=== PATIENT | female | born 1945 | race Caucasian/White ===

== ENCOUNTER 2016-06-27 06:10 | Inpatient (IN) | payer MEDICARE, BC ==
[2016-06-27] MEDS: ACETAMINOPHEN 1,000 MG/ 100 ML IV SCH ×6 (00:45→17:48)
[~2016-06-27 06:10] MED LIST: ACETAMINOPHEN 1000MG/100 ML PREMIX IV ONE; CEFAZOLIN 2 Gram 50 ML IVPB ONE; FAMOTIDINE 20MG TABLET PO ONE; MECLIZINE 25 MG TABLET PO ONE; METOCLOPRAMIDE 10 MG TABLET PO ONE
[2016-06-27] MEDS ORDERED: OXYCODONE HCL 5 MG TABLET PO PRN (09:09)
[2016-06-27] MEDS ORDERED: RINGERS SOLUTION,LACTATED 1,000 ML IV PRN (09:11)
[2016-06-27] MEDS ORDERED: METOCLOPRAMIDE HCL 10 MG/2 ML VIAL IVP PRN (09:15)
[2016-06-27] MEDS ORDERED: MAGNESIUM HYDROXIDE 30 ML UDC PO PRN (09:15)
[2016-06-27] MEDS ORDERED: DIPHENHYDRAMINE HCL 25 MG CAPSULE PO PRN (09:15)
[2016-06-27] MEDS ORDERED: RINGERS SOLUTION,LACTATED 1,000 ML IV SCH (09:15)
[2016-06-27] MEDS ORDERED: SENNOSIDES/DOCUSATE SODIUM UD CAPSULE PO PRN (09:15)
[2016-06-27] MEDS ORDERED: AL HYDROX/MAG HYDROX 30ML UD PO PRN (09:15)
[2016-06-27] MEDS ORDERED: TRAMADOL HCL 50 MG TABLET PO PRN (09:15)
[2016-06-27] MEDS ORDERED: ONDANSETRON HCL IV 4 MG/2 ML VIAL IVP PRN (09:15)
[2016-06-27] MEDS ORDERED: ZOLPIDEM TARTRATE 5 MG TABLET PO PRN (09:15)
[2016-06-27] MEDS ORDERED: FAMOTIDINE 20MG TABLET PO PRN (09:57)
[2016-06-27] MEDS ORDERED: HYOSCYAMINE SULFATE ODT 0.125 MG TAB.SUBL PO PRN (09:58)
[2016-06-27] MEDS ORDERED: TRANEXAMIC ACID 1,000 MG/10 ML ML IV ONE (10:52)
[2016-06-27] MEDS ORDERED: BUPIVACAINE 0.25% W/EPI MPF 30ML VIAL IVP ONE (10:52)
[2016-06-27] MEDS ORDERED: BUPIVACAINE LIPOSOME 266MG/20ML VIAL IV ONE (10:52)
[2016-06-27] MEDS: ENALAPRIL 5 MG TABLET PO SCH (10:54)
[2016-06-27] MEDS: AMLODIPINE BESYLATE 5MG TAB PO SCH (10:55)
[2016-06-27] MEDS ORDERED: TRANEXAMIC ACID 1,000 MG in 0.9 % SODIUM CHLORIDE 100ML 100 ML IVPB ONE (11:00)
[2016-06-27] MEDS: OXYCODONE HCL 5 MG TABLET PO PRN ×2 (11:09→15:36)
[2016-06-27] MEDS ORDERED: PNEUM 13-VAL/PF 0.5 ML IM ONE (12:13)
[2016-06-27] MEDS: HYDROMORPHONE HCL 1 MG/ML CPJ IVP PRN ×4 (12:21→21:49)
[2016-06-27] MEDS ORDERED: LIDOCAINE 2% MDV (20MG/ML) 20ML VIAL IV ONE (14:23)
[2016-06-27] MEDS ORDERED: *PACU ONLY* KETAMINE HCL 10 MG/ML (20ML) VIAL IV ONE (14:23)
[2016-06-27] MEDS ORDERED: PROPOFOL 10 MG/ML VIAL IV ONE (14:23)
[2016-06-27] MEDS ORDERED: MIDAZOLAM HCL 2MG/2ML VIAL IV ONE (14:23)
[2016-06-27] MEDS ORDERED: FENTANYL PF 100MCG/2ML VIAL IV ONE (14:23)
--- NOTE | 2016-06-27 14:48 | Rehab Evaluation ---
Patient Information - Patient Information Diagnosis: Right knee OA, TKA Ordered Treatment: PT Evaluate and Treat Status: Initial Evaluation Surgery: Yes Date of Surgery: 06/27/16 Past Medical/Surgical Hx: PAST MEDICAL/SURGICAL HISTORY Past Surgical History APPY X3 SX AT 14 FOR RUPTURE & COMPL. PRASANNA CTR RT RTC REPAIR LEFT BUNIONECTOMY PILONIDAL CYST EXC. C-SCOPE INFUSAPORT PLACEMENT/REMOVAL PMH - Respiratory Hx Respiratory Disorders No PMH - Cardiovascular Hx Cardiovascular Disorders Yes Hx Hypertension Yes: CONTROLLED WITH MEDS Exercise Tolerance Good PMH - Neuro Hx Neurological Disorders No Comment: SOMETIMES CAN'T GET THE RIGHT WORD OUT PMH - GI Hx Gastrointestinal Disorders Yes Hx Irritable Bowel Yes PMH - Hx Genitourinary Disorders Yes Hx Age of Menopause 47 PMH - Endocrine Hx Endocrine Disorders Yes PMH - Musculoskeletal Hx Musculoskeletal Disorders Yes Hx Arthritis Yes: OSTEOARTHRITIS RIGHT KNEE AND ALL OVER Hx Back Injury Yes: AGE 21 4 FX LUMBAR VERTEBRAE Hx Osteoporosis Yes: SOME ACCORDING TO BONE DENSITY PMH - Psych Hx Psychiatric Problems Yes Hx Anxiety Yes PMH - Hematology/Oncology Hx Hematology/Oncology Yes Disorders Hx Cancer Yes: NON-HODGKINS LYMPHOMA Hx Chemotherapy Yes Hx Radiation Therapy Yes Comment: non-Hodgkins lymphoma Precautions: [place], Fall - Time With Patient Total Time Spent With Patient (Min): 30 Treatment Procedures: Detail (Patient seen in room and has just gotten back in bed from using BSC but willing to get up again and do exercises. Removed CPM from bed and unhooked cryocuff, compressive stockings then supine for exercises for right knee: quad, ham and glut sets then heel slides with assist, SLR with assist and ankle rom exercises. Supine to sit with assist with right LE then able to slide to edge of bed independently. Sit to stand with cues for safety with FWW and shifted weight side to side carefully. Back into bed with very little assist then re-attached CPM, cryocuff, and compressive stockings. Call light close and tray table.) Subjective Information - Subjective Information Per Patient Objective Data - Pain Pain Present: Yes Pain Scale Used: Numeric (1 - 10) (5/10) - Mental Status Patient Orientation: Oriented x3 - Visual Perception Appears within normal limits for therapeutic activities - ROM Within normal limits (except right knee -5 degrees extension to 60 degrees flexion) - Strength/Tone Within normal limits (Except right quads 3+/5, hamstrings 4/5, hip 3+/5) - Coordination Appears within normal limits for therapeutic activities (Needs slight assist with right LE) - Bed Mobility Needs Assist (Needs slight assist for exercises and mobility) - Transfers Needs Assist (Transfers to commode with min assist nursing) - Balance Balance Sitting: Good Balance Standing: Good - Sensation Intact - Gait Detail (Took a few steps but quite a bit of discomfort knee so minimal today. Using FWW WBAT right.) - Special Tests No Therapy Assessment - Therapy Assessment Detail (Patient doing very well day of surgery so far.) Patient Education - Patient Education Teaching Topic: Equipment Use, Exercise/Activity Response: Return Demonstration Teaching Method: Demonstration Teaching Recipient: Patient Barriers To Learning: None Problem List - Problem List Physical Therapy Problem List: Detail (1. Some decreased mobility and strength right LE 2. Decreased functional ambulation yet. 3. Pain from recent surgery) Goals - Goals Physical Therapy Goals: 1. Patient will demonstrate independence with exercises for right knee. 2. Patient will be able to ambulate functional distances with FWW or appropriate device for going home. 3. Patient will be independent with bed mobility and transfers with AD. Prognosis - Prognosis Good (Patient doing extremely well today and should progress well for going home tomorrow.) Plan - Plan Physical Therapy Plan: Patient to be seen BID tomorrow for exercises and gait, stairs so can be discharged home evening day after surgery or second am with family assist.
[2016-06-27] MEDS: CEFAZOLIN 2 Gram 2 GM in DEXTROSE 1 BAG IVPB SCH ×2 (15:39→23:11)
[2016-06-27] MEDS: TRAMADOL HCL 50 MG TABLET PO PRN (16:50)
[2016-06-27] MEDS: FONDAPARINUX 2.5 MG/0.5 ML SYR SQ SCH (17:01)
[2016-06-27] MEDS ORDERED: SERTRALINE HCL 50 MG TABLET PO SCH (22:00)
[2016-06-28] MEDS: HYDROMORPHONE HCL 1 MG/ML CPJ IVP PRN ×4 (01:09→12:56)
[2016-06-28] MEDS: OXYCODONE HCL 5 MG TABLET PO PRN (04:24)
[2016-06-28] MEDS: CEFAZOLIN 2 Gram 2 GM in DEXTROSE 1 BAG IVPB SCH (06:40)
[2016-06-28 06:47] LABS: HEMOGLOBIN 12.5 gm/dl (11.6-16.0); MEAN CORPUSCULAR HEMOGLOBIN 30.3 pg (27-33); MEAN CORPUSCULAR HGB CONC 32.9 g/dl (32-36); MEAN PLATELET VOLUME 10.4 fl (7.4-10.4); PLATELET COUNT 244 K/uL (130-400); RED BLOOD COUNT 4.13 M/uL (3.80-5.40); RED CELL DISTRIBUTION WIDTH 14.6 % (11.5-14.5); WHITE BLOOD COUNT W/O DIFF 9.9 K/uL (4.2-12.2)
[2016-06-28] MEDS: ACETAMINOPHEN 1,000 MG/ 100 ML IV SCH ×2 (08:47)
[2016-06-28] MEDS: OXYCODONE HCL/APAP 5MG/325MG TABLET PO PRN ×2 (08:53→15:03)
[2016-06-28] MEDS ORDERED: HYDROCODONE/APAP 5/325MG TABLET PO PRN ×2 (09:09)
[2016-06-28] MEDS ORDERED: OXYCODONE HCL/APAP 5MG/325MG TABLET PO PRN (09:09)
[2016-06-28] MEDS ORDERED: ACETAMINOPHEN 325 MG TAB PO PRN (09:15)
[2016-06-28] MEDS: AMLODIPINE BESYLATE 5MG TAB PO SCH (09:30)
--- NOTE | 2016-06-28 10:56 | Physical Therapy Tx Note ---
Physical Therapy Tx Note - Treatment Note Tolerated: Good (Pt. tolerated tx well. Pt. denied SOB, dizziness, and maintained a pain report of 5/10 throughout tx.) Total Time Spent With Patient: 35 Physical Therapy Tx Note: Detail (Pt. ambulated I with front wheeled walker for ~115 feet. Pt. was I with bed mobility and exercise. Pt. performed ankle pumps, quad sets, glute sets, and heel slides in bed. Pt. was left supine with call light available, B IPC, Cryo attached, and nursing was notified of pt.'s status. ) Physical Therapy Problem List: Detail (1. Some decreased mobility and strength right LE 2. Decreased functional ambulation yet. 3. Pain from recent surgery) Physical Therapy Goals: 1. Patient will demonstrate independence with exercises for right knee. 2. Patient will be able to ambulate functional distances with FWW or appropriate device for going home. 3. Patient will be independent with bed mobility and transfers with AD. Prognosis: Good (Pt. is expected to complete stair goal during PM session and be ready for D/C from inpatient PT.) Physical Therapy Plan: Patient to be seen BID tomorrow for exercises and gait, stairs so can be discharged home evening day after surgery or second am with family assist.
[2016-06-28] MEDS: TRAMADOL HCL 50 MG TABLET PO PRN (10:57)
[2016-06-28] MEDS: ENALAPRIL 5 MG TABLET PO SCH (10:57)
--- NOTE | 2016-06-28 15:44 | Physical Therapy Tx Note ---
Physical Therapy Tx Note - Treatment Note Tolerated: Good (Pt. maintained pain report of 4/10 throughout tx session. Pt. denied nausea, SOB, or fatigue.) Total Time Spent With Patient: 30 Physical Therapy Tx Note: Detail (Pt. ambulated to stairwell and ascended/ descended 3 steps with front wheeled walker independently. Pt. demonstrated proper positioning of the AD. Pt. was I with bed mobility and transfers. Pt. performed sit<->stand transfer I and maintained good midline orientation while standing. Pt. performed seated heel slides and passive knee flexion and extension appropriately and demonstrated good understanding of HEP.) Physical Therapy Problem List: Detail (1. Some decreased mobility and strength right LE 2. Decreased functional ambulation yet. 3. Pain from recent surgery) Physical Therapy Goals: 1. Patient will demonstrate independence with exercises for right knee. 2. Patient will be able to ambulate functional distances with FWW or appropriate device for going home. 3. Patient will be independent with bed mobility and transfers with AD. Prognosis: Good (Pt. has met all goals set for inpatient physical therapy and is appropriate for D/C to home environment.) Physical Therapy Plan: D/C pt. from inpatient physical therapy.
[2016-06-28] MEDS: FONDAPARINUX 2.5 MG/0.5 ML SYR SQ SCH (16:30)
--- NOTE | 2016-06-29 08:14 | Operative Note ---
DATE OF SURGERY: 06/27/16 SURGEON: RICHARD ART D.O. REFERRING PHYSICIAN: LIBORIO VILLALPANDO M.D. PREOPERATIVE DIAGNOSIS: PRIMARY OSTEOARTHRITIS OF THE RIGHT KNEE. POSTOPERATIVE DIAGNOSIS: PRIMARY OSTEOARTHRITIS OF THE RIGHT KNEE. PROCEDURE: RIGHT TOTAL KNEE ARTHROPLASTY. DESCRIPTION: This 71-year-old female was taken to the Operating Room and placed in the supine position on the operating room table. After spinal anesthesia was induced by the Department of Anesthesia, the right lower extremity was elevated. It was prepped with Hibiclens and draped in the usual sterile fashion. It was exsanguinated and the tourniquet elevated to 300 mmHg. All scrub personnel wore personal isolation suits. An anterior longitudinal midline incision was made followed by a medial parapatellar arthrotomy incision. An intercondylar drill hole was made for the intramedullary alignment emilie and a 10 mm, 5-degree valgus cut was made in the distal femur due to the patient's slight flexion contracture. Wafer of bone was removed. The sizing jig was affixed. A size 62.5 seemed to be the appropriate size in the anterior to posterior dimension but too wide in the mediolateral direction, therefore the 4-in-1 cutting block was pinned 2 mm anteriorly and 3 degrees of external rotation and the appropriate cuts were made and the wafers of bone were removed. We then directed our attention to the proximal tibia and an extramedullary alignment guide was used to cut the proximal tibia referencing a 10 mm cut off the lateral tibial plateau. Once the alignment jig had been appropriately aligned, a 3 degree posterior slope cut was made and the the wafers of bone was removed. Remnants of the menisci and osteophytes were removed from the posterior aspect of the joint. The tibia was sized to a size 71 and the Stem- Punch was used. The wound was copiously irrigated with pulse lavage lactated Ringer solution. All bony surfaces were dried. All component were cemented in to place and excess cement removed after the insertion of each component. Initially, the tibial baseplate was placed followed by the insertion of the tibial bearing, femoral component, and finally the patella. Once the cement had hardened, the knee was again taken through range of motion and again found to be stable. The wound again irrigated with lactated Ringer solution. Exparel had been injected into the posteromedial and lateral corners of the joint and after insertion of the final components, the remainder was injected into the periosteum and joint capsule of the proximal tibia and distal femur. A drain was placed through a separate stab incision. The arthrotomy incision closed with #2 Vicryl, the subcutaneous tissue closed with 0 Vicryl, the skin stapled. Sterile dressings applied with a PolarCARE and the patient was taken to the Recovery Room in satisfactory condition. GROSS PATHOLOGY: This patient had very severe medial compartment osteoarthritis with full-thickness articular cartilage loss noted on both sides of the joint as well as full-thickness articular cartilage loss noted at the patellofemoral joint, most severely on the lateral side. Final components inserted were [employer] Vanguard size 60 cruciate retaining femoral component, a 71 tibial baseplate at 10 mm anterior stabilized E1 bearing, and a 34 x 7.8 mm patella was used. Richard Art D.O. Date & Time cc: Liborio Villalpando M.D. JOB NUMBER: [id number] MTDD
--- NOTE | 2016-06-29 09:56 | Discharge Summary ---
DATE OF ADMISSION: 06/27/16 DATE OF DISCHARGE: 06/28/16 ADMITTING DIAGNOSIS: OSTEOARTHRITIS OF THE RIGHT KNEE. DISCHARGE DIAGNOSIS: OSTEOARTHRITIS OF THE RIGHT KNEE. OPERATIVE PROCEDURE: ELECTIVE RIGHT TOTAL KNEE ARTHROPLASTY. DESCRIPTION: This 71-year-old female was admitted to the hospital for an elective total knee arthroplasty and tolerated the operative procedure well. The drain was removed. First postoperative day, the patient ambulated and cleared physical therapy and was ready for discharge. She was instructed to wear her IVAN hose during the day and remove them at night. She was given a prescription for Percocet 7.5/325 to take one or two every six hours as necessary for pain and she was given #80. She was also instructed to take stool softeners at home. She was also told to take Aspirin 325 mg b.i.d. for two weeks. She will have outpatient physical therapy. Routine wound care instructions were given. She will follow-up in the office in two weeks. Should she have any problems prior to being seen, she was instructed to call my office. CRISTINE ART D.O. Date & Time JOB NUMBER: [id number] MTDD
== END 2016-06-28 17:10 | disposition home or self-care (01) | DRG 470 ==
LOC: MEDSURG 06:10
PROVIDERS: ADMIT Orthopaedic Surgery; ATTEND Orthopaedic Surgery
PROC: 0SRC0J9 Replacement of Right Knee Joint with Synthetic Substitute, Cemented, Open Approach (ICD-10-PCS; principal; 2016-06-27 07:30)
DX: M17.11 Unilateral primary osteoarthritis, right knee (principal); E03.9 Hypothyroidism, unspecified; I10 Essential (primary) hypertension
CPT/HCPCS: 85025; 97110; 97116; 97161; J1170

== ENCOUNTER 2016-08-15 13:59 | Emergency (ER) | payer MEDICARE, BC ==
--- NOTE | 2016-08-15 15:44 | Emergency Department Record ---
History of Present Illness - General Chief complaint: Lower Extremity Pain Stated complaint: PAIN IN RT LEG Time Seen by Provider: 08/15/16 15:43 Source: Patient Mode of Arrival: Ambulatory Limitations: No limitations - History of Present Illness Initial comments: The patient had a R total knee replacement 7 weeks ago and has been doing very well. Now for the last 2 days she has been having pain behind the R knee. She denies any knee or calf pain or any leg swelling. The patient is concerned about a blood clot. She denies any CP, SOB, or HUGO. MD Complaint: Extremity pain Onset/Timin -: Days(s) Location: Right, Knee History of Same: No Radiation: Proximal, Distal Severity scale (1-10): 4 Quality: Other Improves with: Elevation, Immobilization Worsens with: Exertion, Palpation Associated Symptoms: Denies other symptoms - Related Data Home Medications Medication Instructions Recorded Confirmed Last Taken Amlodipine Besylate [Norvasc] 2.5 mg PO DAILY 08/15/16 08/15/16 08/14/16 Enalapril Maleate [Enalapril 10 mg PO DAILY 08/15/16 08/15/16 Unknown Maleate] Hydrocodone/Acetaminophen 1 tab PO Q8H 08/15/16 08/15/16 Unknown [Hydrocodon-Acetaminophen 5-325] Hyoscyamine Sulfate [Levsin] 0.125 mg PO Q4H 08/15/16 08/15/16 Unknown Sertraline HCl [Zoloft] 50 mg PO QHS 08/15/16 08/15/16 Unknown Tramadol HCl 100 mg PO BID 08/15/16 08/15/16 Unknown Zolpidem Tartrate [Ambien] 10 mg PO QHS 08/15/16 08/15/16 Unknown Allergies Allergy/AdvReac Type Severity Reaction Status Date / Time amoxicillin trihydrate AdvReac NAUSEA Verified 08/15/16 15:39 [From Augmentin] aspirin AdvReac NAUSEA Verified 08/15/16 15:39 celecoxib [From Celebrex] AdvReac NAUSEA Verified 08/15/16 15:39 potassium clavulanate AdvReac NAUSEA Verified 08/15/16 15:39 [From Augmentin] Sulfa (Sulfonamide AdvReac NAUSEA Verified 08/15/16 15:39 Antibiotics) sulfamethoxazole AdvReac NAUSEA Verified 08/15/16 15:39 [From Bactrim] trimethoprim [From Bactrim] AdvReac NAUSEA Verified 08/15/16 15:39 Travel Screening - Travel/Exposure Within Last 30 Days Have you traveled within the last 30 days?: No Review of Systems Constitutional: Denies: Chills, Fever Eyes: Denies: Eye discharge ENT: Denies: Congestion Respiratory: Denies: Cough, Dyspnea Past Medical History - SOCIAL HISTORY Smoking Status: Never smoker Alcohol Use: None Drug Use: None - RESPIRATORY Hx Respiratory Disorders: No - CARDIOVASCULAR Hx Cardio Disorders: Yes Hx Hypertension: Yes (CONTROLLED WITH MEDS) - NEURO Hx Neuro Disorders: No - GI Hx GI Disorders: Yes Hx Irritable Bowel: Yes - Hx Genitourinary Disorders: Yes - ENDOCRINE Hx Endocrine Disorders: Yes - MUSCULOSKELETAL Hx Musculoskeletal Disorders: Yes Hx Arthritis: Yes (OSTEOARTHRITIS RIGHT KNEE AND ALL OVER) Hx Back Injury: Yes (AGE 21 4 FX LUMBAR VERTEBRAE) Hx Osteoporosis: Yes (SOME ACCORDING TO BONE DENSITY) - PSYCH Hx Psych Problems: Yes Hx Anxiety: Yes - HEMATOLOGY/ONCOLOGY Hx Hematology/Oncology Disorders: Yes Hx Cancer: Yes (NON-HODGKINS LYMPHOMA) Hx Chemotherapy: Yes Hx Radiation Therapy: Yes Comment:: non-Hodgkins lymphoma Family Medical History Any Significant Family History?: Yes Family Hx Comment (NOT TO BE USED IN PLACE OF ITEMS BELOW): CANCER SIBLINGS Hx Cancer: Brother/Sister Hx Heart Disease: Father Physical Exam - General General Appearance: Alert, Oriented x3, Cooperative, No acute distress - Head Head exam: Atraumatic, Normocephalic, Normal inspection - Eye Eye exam: Normal appearance - Extremities Extremities exam: Full ROM, Normal capillary refill, Tenderness (There is mild tenderness to the popliteal fossa but no calf or thigh tenderness.), Other (The R leg is NVI with no swelling.). negative: Normal inspection (Post op changes anterior knee but with no swelling, erythema or tenderness.), Calf tenderness, Joint swelling Course Vital Signs 08/15/16 15:34 Temperature 98.2 F Pulse Rate 116 H Respiratory 20 Rate Blood Pressure 133/91 Pulse Ox 98 - Reevaluation(s) Reevaluation #1: I did discuss the US report with the patient. She is to take her home pain medicines and is to see her PCP of Orthopedic surgeon if not better next week. 08/15/16 17:50 Medical Decision Making - Data Complexity MDM Data: X-Ray Ordered and/or Reviewed - Radiology Data Radiology results: Report reviewed (R leg Doppler: Neg for DVT.) Disposition Disposition: Discharge Clinical Impression: Leg pain, right Disposition: Home, Self-Care Condition: (1) Good Instructions: Knee Pain (ED) Additional Instructions: Please use your home pain medicines as needed. Please see your PCP or Dr. Weber if having worse pain next week. Return to the ER for any new problems or issues. Forms: Patient Portal Access Time of Disposition: 17:49
--- NOTE | 2016-08-15 18:10 | Emergency Department Record ---
History of Present Illness - General Chief complaint: Lower Extremity Pain Stated complaint: PAIN IN RT LEG Time Seen by Provider: 08/15/16 15:43 Source: Patient Mode of Arrival: Ambulatory Limitations: No limitations - History of Present Illness Onset/Timin -: Days(s) Location: Right, Knee History of Same: No Radiation: Proximal, Distal Severity scale (1-10): 4 Quality: Other Improves with: Elevation, Immobilization Worsens with: Exertion, Palpation Associated Symptoms: Denies other symptoms - Related Data Home Medications Medication Instructions Recorded Confirmed Last Taken Amlodipine Besylate [Norvasc] 2.5 mg PO DAILY 08/15/16 08/15/16 08/14/16 Enalapril Maleate [Enalapril 10 mg PO DAILY 08/15/16 08/15/16 Unknown Maleate] Hydrocodone/Acetaminophen 1 tab PO Q8H 08/15/16 08/15/16 Unknown [Hydrocodon-Acetaminophen 5-325] Hyoscyamine Sulfate [Levsin] 0.125 mg PO Q4H 08/15/16 08/15/16 Unknown Sertraline HCl [Zoloft] 50 mg PO QHS 08/15/16 08/15/16 Unknown Tramadol HCl 100 mg PO BID 08/15/16 08/15/16 Unknown Zolpidem Tartrate [Ambien] 10 mg PO QHS 08/15/16 08/15/16 Unknown Allergies Allergy/AdvReac Type Severity Reaction Status Date / Time amoxicillin trihydrate AdvReac NAUSEA Verified 08/15/16 15:39 [From Augmentin] aspirin AdvReac NAUSEA Verified 08/15/16 15:39 celecoxib [From Celebrex] AdvReac NAUSEA Verified 08/15/16 15:39 potassium clavulanate AdvReac NAUSEA Verified 08/15/16 15:39 [From Augmentin] Sulfa (Sulfonamide AdvReac NAUSEA Verified 08/15/16 15:39 Antibiotics) sulfamethoxazole AdvReac NAUSEA Verified 08/15/16 15:39 [From Bactrim] trimethoprim [From Bactrim] AdvReac NAUSEA Verified 08/15/16 15:39 Travel Screening - Travel/Exposure Within Last 30 Days Have you traveled within the last 30 days?: No Review of Systems Constitutional: Denies: Chills, Fever Eyes: Denies: Eye discharge ENT: Denies: Congestion Respiratory: Denies: Cough, Dyspnea Past Medical History - SOCIAL HISTORY Smoking Status: Never smoker Alcohol Use: None Drug Use: None - RESPIRATORY Hx Respiratory Disorders: No - CARDIOVASCULAR Hx Cardio Disorders: Yes Hx Hypertension: Yes (CONTROLLED WITH MEDS) - NEURO Hx Neuro Disorders: No - GI Hx GI Disorders: Yes Hx Irritable Bowel: Yes - Hx Genitourinary Disorders: Yes - ENDOCRINE Hx Endocrine Disorders: Yes - MUSCULOSKELETAL Hx Musculoskeletal Disorders: Yes Hx Arthritis: Yes (OSTEOARTHRITIS RIGHT KNEE AND ALL OVER) Hx Back Injury: Yes (AGE 21 4 FX LUMBAR VERTEBRAE) Hx Osteoporosis: Yes (SOME ACCORDING TO BONE DENSITY) - PSYCH Hx Psych Problems: Yes Hx Anxiety: Yes - HEMATOLOGY/ONCOLOGY Hx Hematology/Oncology Disorders: Yes Hx Cancer: Yes (NON-HODGKINS LYMPHOMA) Hx Chemotherapy: Yes Hx Radiation Therapy: Yes Comment:: non-Hodgkins lymphoma Family Medical History Any Significant Family History?: Yes Family Hx Comment (NOT TO BE USED IN PLACE OF ITEMS BELOW): CANCER SIBLINGS Hx Cancer: Brother/Sister Hx Heart Disease: Father Physical Exam - General Limitations: No limitations Course Vital Signs 08/15/16 08/15/16 15:34 17:57 Temperature 98.2 F Pulse Rate 116 H 121 H Respiratory 20 20 Rate Blood Pressure 133/91 137/90 Pulse Ox 98 99 - Reevaluation(s) Reevaluation #1: The patient's HR was slightly elevated during her ER stay. It was running from 110-120. She denied any CP, SOB, HUGO or any dizziness or weakness. The patient states she has a hx of this same issue and does take medicine to lower her HR but has not taken it today. She is instructed to take the medicine at home and see her PCP early next week for recheck. 08/15/16 18:08 Disposition Clinical Impression: Leg pain, right Disposition: Home, Self-Care Condition: (1) Good Instructions: Knee Pain (ED) Additional Instructions: Please use your home pain medicines as needed. Please see your PCP or Dr. Weber if having worse pain next week. Return to the ER for any new problems or issues. Forms: Patient Portal Access
== END 2016-08-15 18:01 | disposition home or self-care (01) ==
LOC: ER 13:59
DX: M25.561 Pain in right knee (principal); R00.0 Tachycardia, unspecified; I10 Essential (primary) hypertension; Z96.651 Presence of right artificial knee joint
CPT/HCPCS: 99283

== ENCOUNTER 2018-04-16 12:10 | Day surgery (SDC) | payer MEDICARE, BC ==
[2018-04-16] MEDS ORDERED: LIDOCAINE 2% MDV (20MG/ML) 20ML VIAL IV ONE (12:11)
[2018-04-16] MEDS ORDERED: PROPOFOL 10 MG/ML VIAL IV ONE (12:11)
--- NOTE | 2018-04-17 10:20 | Operative Note ---
DATE OF SURGERY: 04/16/18 OPERATION: 1. ESOPHAGOGASTRODUODENOSCOPY with biopsy. 2. COLONOSCOPY with cold forceps polypectomy. PREOPERATIVE DIAGNOSES: 1. Chronic heartburn. 2. Colon cancer screening. POSTOPERATIVE DIAGNOSES: 1. Duodenal bulb ulcerations without stigmata of recent hemorrhage. 2. Angulated sigmoid colon with scattered diverticula. 3. Rectal polyp. PREPARATION QUALITY: Excellent. ESTIMATED BLOOD LOSS: Minimum. SPECIMENS: Random gastric, rectal polyp. COMPLICATIONS: None apparent. PROCEDURE: After informed consent was obtained from the patient, she was placed in the left lateral decubitus position in the endoscopy suite, sedated and monitored by the department of anesthesia. A well-lubricated [id number] gastroscope was placed in the posterior oropharynx and under direct visualization passed to the proximal esophagus. The endoscope was advanced through the proximal, mid, and distal esophagus. The GE junction and esophagus were unremarkable. The gastric body and the antrum were unremarkable. The pylorus was cannulated revealing multiple superficial duodenal bulb ulcerations without stigmata of recent hemorrhage, fresh or old blood. The duodenal sweep was unremarkable. J-turn views of the proximal stomach were unremarkable. The endoscope was straightened and antral biopsies were obtained. The endoscope was removed from the patient with no new findings noted. Digital rectal exam was unremarkable. A well-lubricated [id number] colonoscope was inserted into the rectum and advanced to the sigmoid colon. It was quite angulated and did not allow passage of the pediatric colonoscope despite multiple attempts. It was felt that further attempts would not be helpful. As a result, the pediatric colonoscope was removed and a [id number] adult gastroscope was then inserted into the rectum and advanced gently through the narrow angulated segment of the sigmoid colon to the remainder of the proximal sigmoid colon, descending colon, transverse colon, ascending colon, and the cecum. Abdominal pressure and loop reduction as well as torsion of the scope were required to intubate the cecum. The ileocecal valve, appendiceal orifice, ascending colon, transverse colon, and descending colon were unremarkable. The sigmoid colon did demonstrate a few diverticula. There was tortuosity of the sigmoid colon. No obstructing lesions were seen. The rectum revealed a diminutive polyp removed with a cold forceps. J-turn views of the anorectum were unremarkable. The endoscope was straightened, the rectal ampulla deflated, and the endoscope was removed. RECOMMENDATIONS: I suggest the patient start omeprazole 40 mg daily. She should follow a high-fiber diet and will require repeat colonoscopy in 5-10 years. As always, thank you for allowing me to participate in the healthcare of your patients. CC: CATHY FLORES MD, FACP [facility]
== END 2018-04-16 14:05 | disposition home or self-care (01) ==
LOC: HOP 12:10
PROVIDERS: ATTEND Internal Medicine Gastroenterology
DX: Z12.11 Encounter for screening for malignant neoplasm of colon (principal); K62.1 Rectal polyp; K56.609 Unspecified intestinal obstruction, unspecified as to partial versus complete obstruction; K57.30 Diverticulosis of large intestine without perforation or abscess without bleeding; R12 Heartburn; K26.9 Duodenal ulcer, unspecified as acute or chronic, without hemorrhage or perforation; I10 Essential (primary) hypertension; K58.9 Irritable bowel syndrome, unspecified

== ENCOUNTER 2018-11-22 21:09 | Emergency (ER) | payer MEDICARE, BC ==
[2018-11-22] MEDS ORDERED: ONDANSETRON HCL IV 4 MG/2 ML VIAL IVP ONE (21:28)
[2018-11-22] MEDS ORDERED: ACETAMINOPHEN 1,000 MG/100 ML BTL IVPB ONE (21:28)
--- NOTE | 2018-11-22 21:37 | Emergency Department Record ---
History of Present Illness - General Stated Complaint: RT FLANK PAIN Time Seen by Provider: 11/22/18 21:12 Source: Patient, Family Mode of Arrival: Ambulatory Limitations: No limitations - History of Present Illness Initial Comments: 73 yo female presents with right flank pain. The onset of the discomfort was this morning. The pain is mainly over the flank. She states it does hurt to stand or change positions. Additionally, she states she has had urinary burning and frequency. Her urine has been dark. No obvious blood. No rash or fever. She has nausea without vomiting. No diarrhea. MD Complaint: Back pain (Right flank pain) -: Hour(s) Place: Home Radiation: Other (right flank) Severity: Moderate Quality: Aching, Sharp, Stabbing Consistency: Constant Improves With: Immobilization, Sitting upright Worsens With: Movement, Walking Context: Other (Onset this morning without any obvious cause) Associated Symptoms: Nausea/vomiting (nausea without vomiting) - Related Data Previous Rx's Medication Instructions Recorded Cephalexin [Keflex] 500 mg PO TID #21 cap 11/22/18 Cyclobenzaprine HCl [Flexeril] 10 mg PO TID #15 tablet 11/22/18 Allergies Allergy/AdvReac Type Severity Reaction Status Date / Time amoxicillin trihydrate AdvReac NAUSEA Verified 11/22/18 22:28 [From Augmentin] aspirin AdvReac NAUSEA Verified 11/22/18 22:28 celecoxib [From Celebrex] AdvReac NAUSEA Verified 11/22/18 22:29 potassium clavulanate AdvReac NAUSEA Verified 11/22/18 22:29 [From Augmentin] Sulfa (Sulfonamide AdvReac NAUSEA Verified 11/22/18 22:29 Antibiotics) sulfamethoxazole AdvReac NAUSEA Verified 11/22/18 22:29 [From Bactrim] trimethoprim [From Bactrim] AdvReac NAUSEA Verified 11/22/18 22:28 Review of Systems Constitutional: Denies: Chills, Fever, Weakness Eyes: Denies: Eye discharge ENT: Denies: Congestion, Throat pain Respiratory: Denies: Cough, Dyspnea, Hemoptysis, Wheezes Cardiovascular: Denies: Chest pain, Syncope Endocrine: Denies: Fatigue, Polydipsia, Polyuria Gastrointestinal: Reports: Nausea. Denies: Abdominal pain, Diarrhea, Vomiting Genitourinary: Reports: Dysuria, Frequency, Urgency. Denies: Hematuria Musculoskeletal: Reports: Back pain. Denies: Arthralgia, Neck pain Skin: Denies: Bruising, Change in color, Rash Neurological: Denies: Confusion, Headache Psychiatric: Denies: Anxiety Hematological/Lymphatic: Denies: Easy bleeding, Easy bruising Past Medical History - SOCIAL HISTORY Smoking Status: Never smoker - RESPIRATORY Hx Respiratory Disorders: No Hx Asthma: No Hx Bronchitis: No Hx COPD: No Hx Dyspnea: No Hx Pneumonia: No Hx Pulmonary Embolism: No Hx Sleep Apnea: No Hx Tuberculosis: No Comment:: allegies to dust, mold and mildew. - CARDIOVASCULAR Hx Cardio Disorders: Yes Hx Abnormal EKG: No Hx Cardiac Cath: No Hx Chest Pain: No Hx CHF: No Hx Deep Vein Thrombosis: No Hx Edema: No Hx Heart Attack: No Hx Hypertension: Yes (CONTROLLED WITH MEDS) Hx Irregular Heartbeat: No Hx Palpitations: No Hx Pacemaker/Defib: No Hx Vascular Disease: No Hx Coronary Artery Disease: No Hx Coronary Artery Bypass Graft: No Hx Coronary Stent: No - NEURO Hx Neuro Disorders: No Hx CVA: No Hx Dizziness: No Hx Headaches: No Hx of Migraines: No Hx Neuropathy: No Hx Parkinson's Disease: No Hx Seizures: No Hx Speech Problem: No Hx TIA: No Hx Weakness: No Hx Paralysis: No Comment:: SOMETIMES CAN'T GET THE RIGHT WORD OUT - GI Hx GI Disorders: Yes Hx Abdominal Pain: No Hx Celiac Disease: No Hx Crohn's Disease: No Hx Diverticulitis: No Hx Reflux: Yes (heartburn) Hx Hepatitis/Jaundice: No Hx Irritable Bowel: Yes Hx Liver Disease: No Hx Nausea/Vomiting: No Hx Obstructive Bowel: No Hx Pancreatitis: No Hx Cirrhosis: No Hx of Polyps: No - Hx Genitourinary Disorders: Yes Hx Bladder Problem: Yes (hx of bladder infection) Hx Kidney Stones: No Hx Renal Disease: No Hx UTI: No - ENDOCRINE Hx Endocrine Disorders: No Hx Diabetes: No Hx Thyroid Disease: No - MUSCULOSKELETAL Hx Musculoskeletal Disorders: Yes Hx Arthritis: Yes (OSTEOARTHRITIS RIGHT KNEE AND ALL OVER) Hx Back Injury: Yes (AGE 21 4 FX LUMBAR VERTEBRAE) Hx Osteoporosis: Yes (SOME ACCORDING TO BONE DENSITY) - PSYCH Hx Psych Problems: Yes Hx Anxiety: Yes Hx Depression: Yes - HEMATOLOGY/ONCOLOGY Hx Hematology/Oncology Disorders: Yes Hx Bruising: Yes (thin skin) Hx Cancer: Yes (NON-HODGKINS LYMPHOMA 25 yrs ago) Hx Chemotherapy: Yes Hx Radiation Therapy: Yes Comment:: non-Hodgkins lymphoma 25 yrs ago Family Medical History Family Hx Comment (NOT TO BE USED IN PLACE OF ITEMS BELOW): CANCER SIBLINGS Hx Cancer: Brother/Sister *Cancer Comment: sister-lung, sister non hodgkins Hx Heart Disease: Father, Brother/Sister Physical Exam - General General Appearance: Alert, Oriented x3, Cooperative, No acute distress Limitations: No limitations - Head Head exam: Atraumatic, Normal inspection - Eye Eye exam: Normal appearance. negative: Conjunctival injection - ENT ENT exam: Normal exam, Mucous membranes moist Ear exam: Normal external inspection Nasal Exam: Normal inspection Mouth exam: Normal external inspection - Neck Neck exam: Normal inspection - Respiratory Respiratory exam: Normal lung sounds bilaterally. negative: Respiratory distress - Cardiovascular Cardiovascular Exam: Regular rate, Normal rhythm, Normal heart sounds - GI/Abdominal GI/Abdominal exam: Soft. negative: Distended, Guarding, Rebound, Tenderness - Rectal Rectal exam: Deferred - exam: Deferred - Extremities Extremities exam: Normal inspection. negative: Pedal edema, Tenderness - Back Back exam: Reports: CVA tenderness (R), Tenderness. Denies: CVA tenderness (L) - Neurological Neurological exam: Alert, Oriented X3 - Psychiatric Psychiatric exam: Normal affect, Normal mood. negative: Agitated, Anxious - Skin Skin exam: Dry, Intact, Normal color, Warm Course - Reevaluation(s) Reevaluation #1: 11/22/18 22:15 The CBC and BMP are normal 11/22/18 22:[address] scan from [facility] was reviewed. No acute findings The UA had large LE but no bacteria with 3-5 WBC's She is having urinary symptoms so a culture will be sent and she will be place on antibiotics until it results 11/22/18 22:57 With essentially normal labs, CT likely cause is musculoskeletal She improved with Ofirmev and Toradol We discussed the results, home care and reason for immediate return to the ED We discussed a recheck with her PCP as well 11/22/18 Medical Decision Making - Lab Data Result diagrams: 11/22/18 21:40 11/22/18 21:40 Disposition Disposition: Discharge Clinical Impression: Back pain Qualifiers: Back pain location: low back pain Chronicity: acute Back pain laterality: right Sciatica presence: without sciatica Qualified Code(s): M54.5 - Low back pain Disposition: Home, Self-Care Condition: (1) Good Instructions: Flank Pain (ED) Additional Instructions: Call your doctor for the next available follow up appointment Review this ER visit and the tests performed with your family doctor Return to the ER for a recheck if worse, any new concerns or questions, fever, vomiting Take the prescriptions provided as directed Prescriptions: Cyclobenzaprine HCl [Flexeril] 10 mg PO TID #15 tablet Cephalexin [Keflex] 500 mg PO TID #21 cap Time of Disposition: 22:58 Quality - Quality Measures Quality Measures: N/A - Blood Pressure Screening Does Patient Have Any of the Following: Active Dx of HTN Blood Pressure Classification: Pre-Hypertensive BP Reading Systolic Measurement: 136 Diastolic Measurement: 55 Screening for High Blood Pressure: Patient Exclusion, Hx of HTN [G9744] Pre-Hypertensive Follow-up Interventions: Referral to alternative/primary care provider.
[2018-11-22 21:55] LABS: ABSOLUTE NEUTROPHIL COUNT 5.35; BASO % 0.4 % (0-6); EOS % 1.3 % (0-6); GRAN % 53.9 % (47-80); HEMATOCRIT 41.6 % (35.0-47.0); HEMOGLOBIN 13.1 gm/dl (11.6-16.0); LYMPH % 33.8 % (16-45); MEAN CELL VOLUME 90.8 fl (81-97); MEAN CORPUSCULAR HEMOGLOBIN 28.6 pg (27-33); MEAN CORPUSCULAR HGB CONC 31.5 g/dl (32-36); MEAN PLATELET VOLUME 10.2 fl (7.4-10.4); MONO % 10.6 % (0-9); PLATELET COUNT 285 K/uL (130-400); RED BLOOD COUNT 4.58 M/uL (3.80-5.40); RED CELL DISTRIBUTION WIDTH 14.9 % (11.5-14.5); WHITE BLOOD COUNT W/O DIFF 9.9 K/uL (4.2-12.2)
[2018-11-22 21:58] LABS: URINE APPEARANCE SL CLOUDY; URINE BILIRUBIN NEGATIVE (NEGATIVE); URINE BLOOD NEGATIVE (NEGATIVE); URINE COLOR YELLOW; URINE GLUCOSE (UA) NEGATIVE (NEGATIVE); URINE KETONE NEGATIVE (NEGATIVE); URINE LEUKOCYTE ESTERASE LARGE (NEGATIVE); URINE NITRITE NEGATIVE (NEGATIVE); URINE PROTEIN NEGATIVE (NEGATIVE); URINE UROBILINOGEN 0.2 E.U./dL (0.20 - 1.00)
[2018-11-22 22:03] LABS: BLOOD UREA NITROGEN 16 mg/dL (8-23); CREATININE 0.8 mg/dL (0.5-0.9); EST GLOMERULAR FILTRATION RATE > 60 mL/min
[2018-11-22 22:06] LABS: GLUCOSE,RANDOM 130 mg/dL (74-109)
[2018-11-22 22:12] LABS: URINE RBC 0 - 2 (NONE SEEN)
[2018-11-22] MEDS ORDERED: KETOROLAC 30 MG/ML VIAL IVP ONE (22:34)
[2018-11-22] MEDS ORDERED: CEPHALEXIN 500 MG CAPSULE PO STA (22:59)
[2018-11-22] MEDS ORDERED: HYDROCODONE/APAP 5/325MG TABLET PO ONE (23:03)
--- NOTE | 2018-11-24 05:23 | CT SCAN REPORT ---
EXAM: EMERGENCY CT OF THE ABDOMEN AND PELVIS WITHOUT CONTRAST HISTORY: RIGHT FLANK PAIN, DYSURIA. TECHNIQUE: Axial CT scan of the abdomen and pelvis was obtained without oral or IV contrast. A preliminary report was provided by [facility]. Comparison: No prior CT of the abdomen or pelvis with which to compare. FINDINGS: No calcified gallstones are seen within the gallbladder. No intrarenal calculi identified on either side. No hydronephrosis or hydroureter is seen on either side as well. As such it is somewhat difficult to follow the entire course of both ureters in their nondilated state throughout the retroperitoneum and pelvis, but no definite ureteral calculus seen on either side and no bladder calculus. There is probably a small phlebolith immediately adjacent to each ureter in the pelvis, but no definite actual intraureteral calculus seen. Evaluation of the bowel and viscera is extremely limited without oral or IV contrast. Given this limitation, no definite hepatic, splenic, adrenal, pancreatic, or renal mass identified. I believe the appendix is identified as a normal caliber structure with no appendicitis evident. Small umbilical hernia containing adipose tissue, but no bowel. There is probably some mild dependent atelectasis in the right base in particular. No definite free intraperitoneal air or free intraperitoneal fluid identified. There is prominent degenerative change in the lumbar spine and prominent spurring in the thoracic spine. There is some mild compression in the body of L2 with some posterior spurring at this level probably impinging on the anterior aspect of the thecal sac at this level. There is spinal stenosis at the L1-L2 level. There is multilevel foraminal stenosis in the cervical spine as well and prominent spurring posteriorly at the L3-L4 interspace which may also be impinging on the anterior aspect of the thecal sac at this level. Marked narrowing of the L2-L3 interspace which is largely absent, with prominent narrowing of the L1-L2 and L3-L4 interspaces as well. Degenerative change at the sacroiliac joints bilaterally and also at the pubic symphysis. There is a mild lumbar curve to the left. IMPRESSION: 1. NO DEFINITE URINARY TRACT CALCULI OR HYDRONEPHROSIS EVIDENT. 2. SMALL UMBILICAL HERNIA CONTAINING ADIPOSE TISSUE, BUT NO BOWEL. 3. EXTENSIVE DEGENERATIVE CHANGES IN THE LUMBAR SPINE WITH SOME MILD COMPRESSION OF THE BODY OF L2 AND WITH SPINAL STENOSIS AT THE L1-L2 INTERSPACE AND SOME IMPINGEMENT ON THE ANTERIOR ASPECT OF THE THECAL SAC AT THE L3-L4 INTERSPACE WELL. JOB NUMBER: [id number] MTDD
== END 2018-11-22 23:16 | disposition home or self-care (01) ==
LOC: ER 21:09
DX: M54.5 Low back pain (principal); I10 Essential (primary) hypertension; M81.0 Age-related osteoporosis without current pathological fracture
CPT/HCPCS: 74176; 80048; 81001; 85025; 96365; 96375; 99284; J1885; J2405